=== PATIENT | male | born 1970 | race Caucasian/White ===

== ENCOUNTER 2018-10-28 09:20 | Emergency (ER) | payer MEDICAID ==
[~2018-10-28] VITALS: Ht 172.7 cm; Wt 86.4 kg
[2018-10-28] MEDS ORDERED: DULO20CA30 PO (09:36)
[2018-10-28] MEDS ORDERED: RISP.5 PO (09:36)
[2018-10-28] MEDS ORDERED: IBUPROFEN 600 MG TABLET PO ONE (10:30)
[2018-10-28 11:04] VITALS: BP 156/97
== END 2018-10-28 11:29 | disposition home or self-care (01) ==
LOC: EMS 09:25
DX: S62.326A Displaced fracture of shaft of fifth metacarpal bone, right hand, initial encounter for closed fracture (principal); W19.XXXA Unspecified fall, initial encounter; Y93.89 Activity, other specified; Y92.89 Other specified places as the place of occurrence of the external cause; Y99.8 Other external cause status

== ENCOUNTER 2019-01-18 23:32 | Emergency (ER) | payer MEDICAID, OTHER ==
[~2019-01-18] VITALS: Ht 172.7 cm; Wt 86.0 kg
[~2019-01-18 23:32] MED LIST: DULO20CA30 PO; RISP.5 PO
[2019-01-18] MEDS ORDERED: LORA-1001 PO (23:38)
[2019-01-18 23:41] VITALS: BP 112/72
== END 2019-01-19 03:38 | disposition home or self-care (01) ==
LOC: EMS 23:40
DX: F20.9 Schizophrenia, unspecified (principal); F17.210 Nicotine dependence, cigarettes, uncomplicated; Z59.0 Homelessness
CPT/HCPCS: 99406

== ENCOUNTER 2019-01-21 23:49 | Emergency (ER) | payer OTHER ==
[~2019-01-21] VITALS: Ht 175.3 cm; Wt 79.5 kg
[~2019-01-21 23:49] MED LIST changes: -DULO20CA30 PO; +LORA-1001 PO
[2019-01-22 00:49] VITALS: BP 116/69
[2019-01-22 00:50] LABS: BASOPHILS % (AUTO) 0.6 % (0.0-2.0); EOSINOPHILS % (AUTO) 4.3 % (1.0-6.0); HEMATOCRIT 39.1 % (41-53); HEMOGLOBIN 13.2 g/dL (13.5-17.5); LYMPHOCYTES # (AUTO) 1.7 K/uL (1.0-4.8); LYMPHOCYTES % (AUTO) 22.8 % (22.0-44.0); MEAN CORPUSCULAR HGB CONC 33.8 G/dL (31.0-37.0); MEAN CORPUSCULAR VOLUME 98 fL (80-100); MONOCYTES # (AUTO) 0.6 K/uL (0.1-1.0); NEUTROPHILS # (AUTO) 4.8 K/uL (1.8-7.7); NEUTROPHILS % (AUTO) 64.3 % (40.0-70.0); PLATELET COUNT (AUTO) 291 K/uL (150-450); RED CELL DISTRIBUTION WIDTH 14.1 % (11.5-14.5)
[2019-01-22 00:58] LABS: ANION GAP 6 mmol/L (8-16); CALCIUM, TOTAL 8.6 mg/dL (8.8-10.5); CARBON DIOXIDE 31 mmol/L (22-29); CHLORIDE 103 mmol/L (98-107); CREATININE 0.98 mg/dL (0.60-1.30); GLOMERULAR FILTR. RATE CALC > 60 mL/min (>60); GLUCOSE,RANDOM 122 mg/dL (70-110); POTASSIUM 3.6 mmol/L (3.5-5.1); SODIUM SERUM 140 mmol/L (136-145); UREA NITROGEN, BLOOD 11 mg/dL (7-18)
[2019-01-22] MEDS ORDERED: PREG20SO PO (01:00)
[2019-01-22] MEDS ORDERED: CLON0.5T12 PO (01:00)
[2019-01-22] MEDS ORDERED: DULO20CA30 PO (01:00)
[2019-01-22 01:04] LABS: ALANINE AMINOTRANSFERASE 37 U/L (12-78); ALKALINE PHOSPHATASE 76 U/L (46-116); ASPARTATE AMINOTRANSFERASE 18 U/L (15-37); BILIRUBIN,TOTAL 0.1 mg/dL (0.1-1.0); TOTAL PROTEIN, SERUM 5.9 g/dL (6.4-8.2)
== END 2019-01-22 02:00 | disposition left against medical advice (07) ==
LOC: EMS 23:50
DX: Z76.0 Encounter for issue of repeat prescription (principal); Z53.21 Procedure and treatment not carried out due to patient leaving prior to being seen by health care provider
CPT/HCPCS: 36415; 80053; 85025; G0480

== ENCOUNTER 2019-02-01 09:50 | Inpatient (IN) | payer MEDICAID, OTHER ==
[~2019-02-01] VITALS: Ht 167.6 cm; Wt 72.7 kg
[~2019-02-01 09:50] MED LIST changes: +CLON0.5T4 PO; +DULO20CA30 PO; -LORA-1001 PO; +PREG20SO PO
[2019-02-01] MEDS ORDERED: RISP4 PO (10:50)
[2019-02-01 11:18] LABS: BASOPHILS % (AUTO) 0.5 % (0.0-2.0); EOSINOPHILS % (AUTO) 0.4 % (1.0-6.0); HEMOGLOBIN 14.8 g/dL (13.5-17.5); LYMPHOCYTES # (AUTO) 0.9 K/uL (1.0-4.8); LYMPHOCYTES % (AUTO) 15.5 % (22.0-44.0); MEAN CORPUSCULAR HEMOGLOBIN 33.3 pg (26.0-34.0); MEAN CORPUSCULAR HGB CONC 33.6 G/dL (31.0-37.0); MEAN CORPUSCULAR VOLUME 99 fL (80-100); MONOCYTES # (AUTO) 0.5 K/uL (0.1-1.0); MONOCYTES % (AUTO) 8.1 % (2.0-9.0); NEUTROPHILS # (AUTO) 4.6 K/uL (1.8-7.7); NEUTROPHILS % (AUTO) 75.5 % (40.0-70.0); PLATELET COUNT (AUTO) 366 K/uL (150-450); RED BLOOD CELL COUNT(AUTO) 4.44 MIL/uL (4.50-5.90); RED CELL DISTRIBUTION WIDTH 14.3 % (11.5-14.5)
[2019-02-01 11:23] LABS: ANION GAP 7 mmol/L (8-16); CALCIUM, TOTAL 8.8 mg/dL (8.8-10.5); CARBON DIOXIDE 29 mmol/L (22-29); CHLORIDE 97 mmol/L (98-107); CREATININE 0.97 mg/dL (0.60-1.30); GLOMERULAR FILTR. RATE CALC > 60 mL/min (>60); GLUCOSE,RANDOM 100 mg/dL (70-110); SODIUM SERUM 133 mmol/L (136-145); UREA NITROGEN, BLOOD 13 mg/dL (7-18)
[2019-02-01 11:29] LABS: ALANINE AMINOTRANSFERASE 39 U/L (12-78); ALKALINE PHOSPHATASE 90 U/L (46-116); ASPARTATE AMINOTRANSFERASE 34 U/L (15-37); BILIRUBIN,TOTAL 0.6 mg/dL (0.1-1.0); TOTAL PROTEIN, SERUM 7.1 g/dL (6.4-8.2)
[2019-02-01] MEDS ORDERED: LORazepam 2 MG/ML VIAL IM ONE ×2 (12:15→17:30)
[2019-02-01] MEDS ORDERED: DiphenhydrAMINE HCL 50 MG/ML VIAL IM ONE ×2 (12:15→17:30)
[2019-02-01] MEDS ORDERED: HALOPERIDOL LACTATE 5 MG/ML VIAL IM ONE ×2 (12:15→17:30)
[2019-02-01] MEDS ORDERED: INFLUENZA VIRUS VACCINE QVS 2019-20 (3YR+)/PF 60 MCG/0.5 ML SYRINGE IM ONE (18:15)
[2019-02-01] MEDS ORDERED: BENZOCAINE/MENTHOL LOZENGE MM PRN (18:45)
[2019-02-01] MEDS ORDERED: MAG HYDROX/AL HYDROX/SIMETH ES 30 ML SUSPENSION UDCUP PO PRN (18:45)
[2019-02-01] MEDS ORDERED: CloNIDine HCL 0.1 MG TABLET PO PRN (18:45)
[2019-02-01] MEDS ORDERED: ALBUTEROL SULFATE HFA 90 MCG/PUFF 8 GM INHALER IH PRN (18:45)
[2019-02-01] MEDS ORDERED: MAGNESIUM HYDROXIDE SUSPENSION 30 ML UDCUP PO PRN (18:45)
[2019-02-01] MEDS ORDERED: BACITRACIN 28.4 GM OINTMENT TP PRN (18:45)
[2019-02-01] MEDS ORDERED: ACETAMINOPHEN 325 MG TABLET PO PRN (18:45)
[2019-02-01] MEDS ORDERED: PETROLATUM,WHITE 28 GM JELLY TP PRN (18:45)
[2019-02-01] MEDS ORDERED: ONDANSETRON HCL 4 MG TABLET PO PRN (18:45)
[2019-02-01] MEDS ORDERED: IBUPROFEN 600 MG TABLET PO PRN (18:45)
[2019-02-01] MEDS ORDERED: LOPERAMIDE HCL 2 MG CAPSULE PO PRN (18:45)
[2019-02-02 00:38] VITALS: BP 138/93
[2019-02-02] MEDS: HALOPERIDOL 5 MG TABLET PO PRN ×4 (03:59→17:29)
[2019-02-02] MEDS: LORazepam 2 MG TABLET PO PRN ×4 (03:59→17:29)
[2019-02-02] MEDS ORDERED: NICOTINE 21 MG/24 HOUR PATCH TD SCH ×2 (07:00)
[2019-02-02 08:05] VITALS: BP 128/92
[2019-02-02] MEDS: SODIUM CHLORIDE 1 GM TABLET PO SCH ×3 (08:20→17:28)
[2019-02-02] MEDS: NICOTINE 21 MG/24 HOUR PATCH TD SCH (08:20)
[2019-02-02] MEDS: OMEPRAZOLE 20 MG CAPSULE PO SCH (08:20)
[2019-02-02] MEDS: DOCUSATE SODIUM 100 MG CAPSULE PO SCH (08:20)
[2019-02-02] MEDS ORDERED: DiphenhydrAMINE HCL 25 MG CAPSULE PO ONE (13:30)
[2019-02-02] MEDS ORDERED: LORazepam 2 MG TABLET PO ONE (13:30)
[2019-02-02] MEDS ORDERED: HALOPERIDOL 5 MG TABLET PO ONE (13:30)
[2019-02-02] MEDS ORDERED: PREG50 PO (13:32)
[2019-02-02 16:07] VITALS: BP 147/84
[2019-02-02] MEDS: LamoTRIgine 100 MG TABLET PO SCH (17:28)
[2019-02-02] MEDS: RisperiDONE 3 MG TABLET PO SCH (20:41)
[2019-02-02] MEDS: TraZODone HCL 100 MG TABLET PO SCH (20:41)
[2019-02-03 00:33] VITALS: BP 121/70
[2019-02-03] MEDS: ZOLPIDEM TARTRATE 10 MG TABLET PO PRN ×2 (00:33→20:16)
[2019-02-03 08:12] VITALS: BP 126/84
[2019-02-03] MEDS: NICOTINE 21 MG/24 HOUR PATCH TD SCH (08:35)
[2019-02-03] MEDS: HALOPERIDOL 5 MG TABLET PO PRN ×3 (08:36→16:40)
[2019-02-03] MEDS: LamoTRIgine 100 MG TABLET PO SCH ×2 (08:36→16:40)
[2019-02-03] MEDS: DOCUSATE SODIUM 100 MG CAPSULE PO SCH (08:36)
[2019-02-03] MEDS: OMEPRAZOLE 20 MG CAPSULE PO SCH (08:36)
[2019-02-03] MEDS: LORazepam 2 MG TABLET PO PRN ×4 (08:37→20:40)
[2019-02-03] MEDS: SODIUM CHLORIDE 1 GM TABLET PO SCH ×3 (08:38→16:40)
[2019-02-03 10:05] LABS: CHOL/HDL RATIO 2.8 (4.2-7.3); FREE T4 (FREE THYROXINE) 1.17 ng/dL (0.76-1.46)
[2019-02-03 16:47] VITALS: BP 123/74
[2019-02-03] MEDS: TraZODone HCL 100 MG TABLET PO SCH (20:16)
[2019-02-03] MEDS: RisperiDONE 3 MG TABLET PO SCH (20:16)
[2019-02-04 04:50] VITALS: BP 123/83
[2019-02-04 08:15] LABS: ALANINE AMINOTRANSFERASE 38 U/L (12-78); ALBUMIN 3.6 g/dL (3.4-5.0); ALKALINE PHOSPHATASE 77 U/L (46-116); ANION GAP 4 mmol/L (8-16); ASPARTATE AMINOTRANSFERASE 25 U/L (15-37); BILIRUBIN,TOTAL 0.3 mg/dL (0.1-1.0); CALCIUM, TOTAL 8.8 mg/dL (8.8-10.5); CARBON DIOXIDE 30 mmol/L (22-29); CHLORIDE 98 mmol/L (98-107); CREATININE 0.95 mg/dL (0.60-1.30); GLOMERULAR FILTR. RATE CALC > 60 mL/min (>60); GLUCOSE,RANDOM 84 mg/dL (70-110); POTASSIUM 4.7 mmol/L (3.5-5.1); SODIUM SERUM 132 mmol/L (136-145); TOTAL PROTEIN, SERUM 6.6 g/dL (6.4-8.2); UREA NITROGEN, BLOOD 14 mg/dL (7-18)
[2019-02-04] MEDS: LamoTRIgine 100 MG TABLET PO SCH ×2 (08:41→17:09)
[2019-02-04] MEDS: OMEPRAZOLE 20 MG CAPSULE PO SCH (08:42)
[2019-02-04] MEDS: DOCUSATE SODIUM 100 MG CAPSULE PO SCH (08:42)
[2019-02-04] MEDS: NICOTINE 21 MG/24 HOUR PATCH TD SCH (08:44)
[2019-02-04] MEDS: SODIUM CHLORIDE 1 GM TABLET PO SCH ×2 (14:14→17:09)
[2019-02-04 16:07] VITALS: BP 119/80
[2019-02-04] MEDS: TraZODone HCL 100 MG TABLET PO SCH (20:16)
[2019-02-04] MEDS: RisperiDONE 3 MG TABLET PO SCH (20:16)
[2019-02-04] MEDS: ZOLPIDEM TARTRATE 10 MG TABLET PO PRN (21:51)
[2019-02-05 02:14] VITALS: BP 105/65
[2019-02-05] MEDS: HALOPERIDOL 5 MG TABLET PO PRN ×3 (03:45→16:06)
[2019-02-05 08:00] VITALS: BP 148/83
[2019-02-05] MEDS: SODIUM CHLORIDE 1 GM TABLET PO SCH ×3 (09:10→16:06)
[2019-02-05] MEDS: OMEPRAZOLE 20 MG CAPSULE PO SCH (09:10)
[2019-02-05] MEDS: LamoTRIgine 100 MG TABLET PO SCH ×2 (09:10→16:06)
[2019-02-05] MEDS: DOCUSATE SODIUM 100 MG CAPSULE PO SCH (09:10)
[2019-02-05] MEDS: LORazepam 2 MG TABLET PO PRN ×3 (09:11→21:00)
[2019-02-05] MEDS: NICOTINE 21 MG/24 HOUR PATCH TD SCH (09:51)
[2019-02-05 16:00] VITALS: BP 138/86
[2019-02-05] MEDS: RisperiDONE 3 MG TABLET PO SCH (20:59)
[2019-02-05] MEDS: TraZODone HCL 100 MG TABLET PO SCH (21:00)
[2019-02-05] MEDS: ZOLPIDEM TARTRATE 10 MG TABLET PO PRN (21:00)
[2019-02-06 05:00] VITALS: BP 118/65
[2019-02-06 08:11] VITALS: BP 137/80
[2019-02-06] MEDS: LamoTRIgine 100 MG TABLET PO SCH ×2 (08:11→16:14)
[2019-02-06] MEDS: SODIUM CHLORIDE 1 GM TABLET PO SCH ×3 (08:12→16:14)
[2019-02-06] MEDS: DOCUSATE SODIUM 100 MG CAPSULE PO SCH (08:12)
[2019-02-06] MEDS: OMEPRAZOLE 20 MG CAPSULE PO SCH (08:12)
[2019-02-06] MEDS: NICOTINE 21 MG/24 HOUR PATCH TD SCH (08:26)
[2019-02-06] MEDS ORDERED: RisperiDONE MICROSPHERES 50 MG/2 ML SYRINGE IM ONE (09:00)
[2019-02-06 16:00] VITALS: BP 134/74
[2019-02-06] MEDS: LORazepam 2 MG TABLET PO PRN ×2 (16:14→20:38)
[2019-02-06] MEDS: HALOPERIDOL 5 MG TABLET PO PRN (16:14)
[2019-02-06] MEDS: ZOLPIDEM TARTRATE 10 MG TABLET PO PRN (20:38)
[2019-02-06] MEDS: RisperiDONE 3 MG TABLET PO SCH (20:38)
[2019-02-06] MEDS: TraZODone HCL 100 MG TABLET PO SCH (20:38)
[2019-02-07 00:50] VITALS: BP 131/88
[2019-02-07] MEDS: LORazepam 2 MG TABLET PO PRN (03:13)
[2019-02-07] MEDS: HALOPERIDOL 5 MG TABLET PO PRN (03:13)
[2019-02-07 08:33] VITALS: BP 119/77
[2019-02-07 08:42] LABS: ANION GAP 5 mmol/L (8-16); CALCIUM, TOTAL 9.2 mg/dL (8.8-10.5); CARBON DIOXIDE 32 mmol/L (22-29); CHLORIDE 97 mmol/L (98-107); CREATININE 0.94 mg/dL (0.60-1.30); GLOMERULAR FILTR. RATE CALC > 60 mL/min (>60); GLUCOSE,RANDOM 106 mg/dL (70-110); POTASSIUM 5.2 mmol/L (3.5-5.1); SODIUM SERUM 134 mmol/L (136-145); UREA NITROGEN, BLOOD 17 mg/dL (7-18)
[2019-02-07] MEDS: DOCUSATE SODIUM 100 MG CAPSULE PO SCH (09:06)
[2019-02-07] MEDS: SODIUM CHLORIDE 1 GM TABLET PO SCH (09:06)
[2019-02-07] MEDS: LamoTRIgine 100 MG TABLET PO SCH ×2 (09:06→16:57)
[2019-02-07] MEDS: OMEPRAZOLE 20 MG CAPSULE PO SCH (09:06)
[2019-02-07] MEDS: NICOTINE 21 MG/24 HOUR PATCH TD SCH (09:07)
[2019-02-07 16:06] VITALS: BP 138/80
[2019-02-07] MEDS: RisperiDONE 3 MG TABLET PO SCH (20:42)
[2019-02-07] MEDS: TraZODone HCL 100 MG TABLET PO SCH (20:42)
[2019-02-08] MEDS: LORazepam 2 MG TABLET PO PRN ×2 (00:02→20:02)
[2019-02-08] MEDS: ZOLPIDEM TARTRATE 10 MG TABLET PO PRN ×2 (00:02→21:21)
[2019-02-08 00:03] VITALS: BP 128/78
[2019-02-08] MEDS: DOCUSATE SODIUM 100 MG CAPSULE PO SCH (08:10)
[2019-02-08] MEDS: OMEPRAZOLE 20 MG CAPSULE PO SCH (08:10)
[2019-02-08] MEDS: LamoTRIgine 100 MG TABLET PO SCH ×2 (08:13→15:52)
[2019-02-08] MEDS: SODIUM CHLORIDE 1 GM TABLET PO SCH ×5 (08:14→15:59)
[2019-02-08] MEDS: NICOTINE 21 MG/24 HOUR PATCH TD SCH (08:17)
[2019-02-08 08:36] VITALS: BP 142/91
[2019-02-08] MEDS: DIVALPROEX SODIUM 500 MG DR TABLET PO SCH ×2 (12:26→15:53)
[2019-02-08 16:00] VITALS: BP 124/82
[2019-02-08] MEDS: TraZODone HCL 100 MG TABLET PO SCH (20:02)
[2019-02-08] MEDS: HALOPERIDOL 5 MG TABLET PO PRN (20:02)
[2019-02-08] MEDS: RisperiDONE 3 MG TABLET PO SCH (20:02)
[2019-02-09 02:41] VITALS: BP 110/89
[2019-02-09 07:25] LABS: ANION GAP 6 mmol/L (8-16); CARBON DIOXIDE 30 mmol/L (22-29); CHLORIDE 99 mmol/L (98-107); CREATININE 0.86 mg/dL (0.60-1.30); GLUCOSE,RANDOM 87 mg/dL (70-110); POTASSIUM 4.4 mmol/L (3.5-5.1); SODIUM SERUM 135 mmol/L (136-145); UREA NITROGEN, BLOOD 13 mg/dL (7-18)
[2019-02-09 07:26] LABS: CALCIUM, TOTAL 8.7 mg/dL (8.8-10.5); GLOMERULAR FILTR. RATE CALC > 60 mL/min (>60)
[2019-02-09 08:16] VITALS: BP 136/80
[2019-02-09] MEDS: NICOTINE 21 MG/24 HOUR PATCH TD SCH (08:35)
[2019-02-09] MEDS: LamoTRIgine 100 MG TABLET PO SCH (08:37)
[2019-02-09] MEDS: OMEPRAZOLE 20 MG CAPSULE PO SCH (08:38)
[2019-02-09] MEDS: DIVALPROEX SODIUM 500 MG DR TABLET PO SCH (08:39)
[2019-02-09] MEDS: DOCUSATE SODIUM 100 MG CAPSULE PO SCH (08:40)
[2019-02-09] MEDS: SODIUM CHLORIDE 1 GM TABLET PO SCH ×2 (08:40→12:44)
[2019-02-09] MEDS ORDERED: RISP3 PO (10:23)
[2019-02-09] MEDS ORDERED: LAMO100 PO (10:24)
[2019-02-09] MEDS ORDERED: TRAZ-220 PO (10:24)
[2019-02-09] MEDS ORDERED: DIVA-78 PO (10:25)
== END 2019-02-09 13:00 | disposition home or self-care (01) | DRG 750 ==
LOC: EMS 09:51 → B3A 14:37
PROVIDERS: ADMIT Psychiatry & Neurology Psychiatry; ATTEND Psychiatry & Neurology Psychiatry
DX: F25.0 Schizoaffective disorder, bipolar type (principal); E87.1 Hypo-osmolality and hyponatremia; F12.90 Cannabis use, unspecified, uncomplicated; F15.90 Other stimulant use, unspecified, uncomplicated; F41.9 Anxiety disorder, unspecified; G47.00 Insomnia, unspecified; J44.9 Chronic obstructive pulmonary disease, unspecified; K59.00 Constipation, unspecified; Z59.0 Homelessness; Z72.0 Tobacco use; Z79.899 Other long term (current) drug therapy; Z91.19 Patient's noncompliance with other medical treatment and regimen
CPT/HCPCS: 84436; 84439; 96372; 99291; G0480; J1200; J1630; J2060; J2794; Q0162

== ENCOUNTER 2019-02-23 11:14 | Inpatient (IN) | payer MEDICAID, OTHER ==
[~2019-02-23] VITALS: Ht 175.3 cm; Wt 82.7 kg
[~2019-02-23 11:14] MED LIST changes: -CLON0.5T4 PO; +DIVA-78 PO; -DULO20CA30 PO; +LAMO100 PO; -PREG20SO PO; -RISP.5 PO; +RISP3 PO; +TRAZ-220 PO
[2019-02-23 12:38] LABS: AMPHET/METH SCREEN,URINE NEGATIVE (NEGATIVE); BARBITURATE SCREEN, URINE NEGATIVE (NEGATIVE); BENZODIAZEPINES SCREEN,URINE NEGATIVE (NEGATIVE); CANNABINOID SCREEN,URINE POSITIVE (NEGATIVE); COCAINE SCREEN,URINE NEGATIVE (NEGATIVE); METHADONE SCREEN, URINE NEGATIVE (NEGATIVE); OPIATE SCREEN,URINE NEGATIVE (NEGATIVE)
[2019-02-23 12:46] LABS: PHENCYCLIDINE SCREEN,URINE NEGATIVE (NEGATIVE)
[2019-02-23 12:47] LABS: BASOPHILS % (AUTO) 0.5 % (0.0-2.0); EOSINOPHILS % (AUTO) 1.3 % (1.0-6.0); HEMATOCRIT 37.1 % (41-53); LYMPHOCYTES # (AUTO) 0.9 K/uL (1.0-4.8); LYMPHOCYTES % (AUTO) 11.3 % (22.0-44.0); MEAN CORPUSCULAR HGB CONC 35.2 G/dL (31.0-37.0); MEAN CORPUSCULAR VOLUME 97 fL (80-100); MONOCYTES # (AUTO) 0.5 K/uL (0.1-1.0); MONOCYTES % (AUTO) 6.2 % (2.0-9.0); NEUTROPHILS # (AUTO) 6.1 K/uL (1.8-7.7); NEUTROPHILS % (AUTO) 80.7 % (40.0-70.0); PLATELET COUNT (AUTO) 371 K/uL (150-450); RED BLOOD CELL COUNT(AUTO) 3.84 MIL/uL (4.50-5.90); RED CELL DISTRIBUTION WIDTH 13.2 % (11.5-14.5)
[2019-02-23 12:55] LABS: ANION GAP 9 mmol/L (8-16); CALCIUM, TOTAL 8.8 mg/dL (8.8-10.5); CARBON DIOXIDE 30 mmol/L (22-29); CHLORIDE 101 mmol/L (98-107); CREATININE 1.16 mg/dL (0.60-1.30); GLOMERULAR FILTR. RATE CALC > 60 mL/min (>60); GLUCOSE,RANDOM 134 mg/dL (70-110); POTASSIUM 3.4 mmol/L (3.5-5.1); SODIUM SERUM 140 mmol/L (136-145); UREA NITROGEN, BLOOD 16 mg/dL (7-18)
[2019-02-23 12:57] LABS: ALANINE AMINOTRANSFERASE 23 U/L (12-78); ALBUMIN 3.3 g/dL (3.4-5.0); ALKALINE PHOSPHATASE 85 U/L (46-116); ASPARTATE AMINOTRANSFERASE 16 U/L (15-37); BILIRUBIN,TOTAL 0.2 mg/dL (0.1-1.0); TOTAL PROTEIN, SERUM 6.7 g/dL (6.4-8.2)
[2019-02-23] MEDS ORDERED: LORazepam 2 MG/ML VIAL IM ONE (13:00)
[2019-02-23] MEDS ORDERED: HALOPERIDOL LACTATE 5 MG/ML VIAL IM ONE (13:00)
[2019-02-23 16:00] VITALS: BP 138/88
[2019-02-23] MEDS: LamoTRIgine 100 MG TABLET PO SCH (16:32)
[2019-02-23] MEDS ORDERED: PNEUMOCOCCAL VACCINE POLYVALENT 0.5 ML VIAL [PPSV23] IM ONE (21:30)
[2019-02-23] MEDS ORDERED: INFLUENZA VIRUS VACCINE QVS 2019-20 (3YR+)/PF 60 MCG/0.5 ML SYRINGE IM ONE (21:30)
[2019-02-23] MEDS: RisperiDONE 3 MG TABLET PO SCH (23:08)
[2019-02-23] MEDS: TraZODone HCL 100 MG TABLET PO SCH (23:09)
[2019-02-24] MEDS: LORazepam 2 MG TABLET PO PRN ×4 (05:13→17:30)
[2019-02-24] MEDS: HALOPERIDOL 5 MG TABLET PO PRN ×4 (05:13→17:30)
[2019-02-24] MEDS ORDERED: ALBUTEROL SULFATE HFA 90 MCG/PUFF 8 GM INHALER IH PRN (06:45)
[2019-02-24] MEDS ORDERED: LOPERAMIDE HCL 2 MG CAPSULE PO PRN (06:45)
[2019-02-24] MEDS ORDERED: ONDANSETRON HCL 4 MG TABLET PO PRN (06:45)
[2019-02-24] MEDS ORDERED: CloNIDine HCL 0.1 MG TABLET PO PRN (06:45)
[2019-02-24] MEDS ORDERED: BACITRACIN 28.4 GM OINTMENT TP PRN (06:45)
[2019-02-24] MEDS ORDERED: MAGNESIUM HYDROXIDE SUSPENSION 30 ML UDCUP PO PRN (06:45)
[2019-02-24] MEDS ORDERED: BENZOCAINE/MENTHOL LOZENGE MM PRN (06:45)
[2019-02-24] MEDS ORDERED: ACETAMINOPHEN 325 MG TABLET PO PRN (06:45)
[2019-02-24] MEDS ORDERED: MAG HYDROX/AL HYDROX/SIMETH ES 30 ML SUSPENSION UDCUP PO PRN (06:45)
[2019-02-24] MEDS ORDERED: DOCUSATE SODIUM 100 MG CAPSULE PO PRN (06:45)
[2019-02-24] MEDS ORDERED: PETROLATUM,WHITE 28 GM JELLY TP PRN (06:45)
[2019-02-24] MEDS ORDERED: DICLOFENAC SODIUM 1% 100 GM GEL [2GM] TP PRN (06:45)
[2019-02-24] MEDS ORDERED: OMEPRAZOLE 20 MG CAPSULE PO PRN (06:45)
[2019-02-24] MEDS: LamoTRIgine 100 MG TABLET PO SCH ×2 (07:41→17:17)
[2019-02-24] MEDS: NICOTINE 21 MG/24 HOUR PATCH TD SCH (07:44)
[2019-02-24] MEDS: LIDOCAINE 5% TRANSDERMAL PATCH TD SCH (07:48)
[2019-02-24 07:55] VITALS: BP 139/90
[2019-02-24] MEDS: IBUPROFEN 600 MG TABLET PO PRN ×2 (07:55→14:48)
[2019-02-24] MEDS: TiZANidine HCL 4 MG TABLET PO PRN ×2 (07:55→14:48)
[2019-02-24 09:03] VITALS: BP 120/75
[2019-02-24] MEDS: DIVALPROEX SODIUM 500 MG ER TABLET PO SCH (17:16)
[2019-02-24] MEDS: -LIDODERM PATCH NOTE- MISC SCH (20:14)
[2019-02-24] MEDS: RisperiDONE 3 MG TABLET PO SCH (20:15)
[2019-02-24] MEDS: TraZODone HCL 100 MG TABLET PO SCH (20:15)
[2019-02-24 21:33] VITALS: BP 130/88
[2019-02-25] MEDS: ZOLPIDEM TARTRATE 10 MG TABLET PO PRN (00:05)
[2019-02-25] MEDS: LORazepam 2 MG TABLET PO PRN (00:05)
[2019-02-25] MEDS: IBUPROFEN 600 MG TABLET PO PRN ×3 (00:07→18:01)
[2019-02-25] MEDS: LamoTRIgine 100 MG TABLET PO SCH ×2 (09:00→16:52)
[2019-02-25] MEDS: DIVALPROEX SODIUM 500 MG ER TABLET PO SCH ×2 (09:00→16:52)
[2019-02-25] MEDS: LIDOCAINE 5% TRANSDERMAL PATCH TD SCH (09:00)
[2019-02-25] MEDS ORDERED: RisperiDONE MICROSPHERES 50 MG/2 ML SYRINGE IM SCH (09:00)
[2019-02-25 09:01] VITALS: BP 134/78
[2019-02-25] MEDS: NICOTINE 21 MG/24 HOUR PATCH TD SCH (09:08)
[2019-02-25 17:28] VITALS: BP 143/100
[2019-02-25] MEDS: TraZODone HCL 100 MG TABLET PO SCH (20:16)
[2019-02-25] MEDS: RisperiDONE 3 MG TABLET PO SCH (20:17)
[2019-02-25] MEDS: -LIDODERM PATCH NOTE- MISC SCH (21:41)
[2019-02-26] MEDS: IBUPROFEN 600 MG TABLET PO PRN ×5 (00:41→23:12)
[2019-02-26] MEDS ORDERED: LORazepam 2 MG/ML VIAL IM ONE ×2 (08:15→16:00)
[2019-02-26] MEDS ORDERED: HALOPERIDOL LACTATE 5 MG/ML VIAL IM ONE (08:15)
[2019-02-26] MEDS ORDERED: DiphenhydrAMINE HCL 50 MG/ML VIAL IM ONE ×2 (08:15→16:00)
[2019-02-26 08:27] VITALS: BP 134/82
[2019-02-26] MEDS: NICOTINE 21 MG/24 HOUR PATCH TD SCH ×2 (09:00→12:26)
[2019-02-26] MEDS: DIVALPROEX SODIUM 500 MG ER TABLET PO SCH ×2 (09:00→17:00)
[2019-02-26] MEDS: LIDOCAINE 5% TRANSDERMAL PATCH TD SCH (09:00)
[2019-02-26] MEDS: LamoTRIgine 100 MG TABLET PO SCH ×2 (09:00→17:00)
[2019-02-26 19:42] VITALS: BP 123/83
[2019-02-26] MEDS: RisperiDONE 3 MG TABLET PO SCH (20:11)
[2019-02-26] MEDS: -LIDODERM PATCH NOTE- MISC SCH (20:11)
[2019-02-26] MEDS: TraZODone HCL 100 MG TABLET PO SCH (20:11)
[2019-02-26] MEDS: LORazepam 2 MG TABLET PO PRN (23:44)
[2019-02-26] MEDS: ZOLPIDEM TARTRATE 10 MG TABLET PO PRN (23:44)
[2019-02-27] MEDS: IBUPROFEN 600 MG TABLET PO PRN ×3 (04:51→17:40)
[2019-02-27 04:52] VITALS: BP 130/88
[2019-02-27 09:00] VITALS: BP 128/86
[2019-02-27] MEDS: DIVALPROEX SODIUM 500 MG ER TABLET PO SCH ×2 (09:00→17:00)
[2019-02-27] MEDS: LamoTRIgine 100 MG TABLET PO SCH ×2 (09:00→17:00)
[2019-02-27] MEDS: LIDOCAINE 5% TRANSDERMAL PATCH TD SCH (09:00)
[2019-02-27] MEDS: NICOTINE 21 MG/24 HOUR PATCH TD SCH (09:00)
[2019-02-27 17:40] VITALS: BP 137/71
[2019-02-27] MEDS: LORazepam 2 MG TABLET PO PRN (20:00)
[2019-02-27] MEDS: TraZODone HCL 100 MG TABLET PO SCH (20:00)
[2019-02-27] MEDS: -LIDODERM PATCH NOTE- MISC SCH (20:00)
[2019-02-27] MEDS: RisperiDONE 3 MG TABLET PO SCH (20:01)
[2019-02-27] MEDS: ZOLPIDEM TARTRATE 10 MG TABLET PO PRN (20:45)
[2019-02-28 00:07] VITALS: BP 131/72
[2019-02-28] MEDS: IBUPROFEN 600 MG TABLET PO PRN ×3 (00:07→16:04)
[2019-02-28] MEDS: LORazepam 2 MG TABLET PO PRN ×2 (00:07→08:47)
[2019-02-28] MEDS: NICOTINE 21 MG/24 HOUR PATCH TD SCH (07:58)
[2019-02-28] MEDS: LIDOCAINE 5% TRANSDERMAL PATCH TD SCH (08:58)
[2019-02-28] MEDS: LamoTRIgine 100 MG TABLET PO SCH (08:58)
[2019-02-28] MEDS: DIVALPROEX SODIUM 500 MG ER TABLET PO SCH (08:58)
[2019-02-28 09:47] VITALS: BP 122/84
== END 2019-02-28 16:20 | disposition left against medical advice (07) | DRG 885 ==
LOC: EMS 11:17 → 3EC 14:40
PROVIDERS: ADMIT Psychiatry & Neurology Psychiatry; ATTEND Psychiatry & Neurology Psychiatry
DX: F25.0 Schizoaffective disorder, bipolar type (principal); F12.90 Cannabis use, unspecified, uncomplicated; F41.9 Anxiety disorder, unspecified; I10 Essential (primary) hypertension; R45.87 Impulsiveness; Z59.0 Homelessness; Z79.899 Other long term (current) drug therapy; Z91.14 Patient's other noncompliance with medication regimen
CPT/HCPCS: 87081; 97161; G0480; J1200; J1630; J2060; J2794; J3230